=== PATIENT | female | born 1940 | race Caucasian/White ===

== ENCOUNTER 2017-07-17 09:13 | Day surgery (SDC) | payer MEDICARE ==
[2017-07-15 11:12] VITALS: BMI 21.1
[~2017-07-17 09:13] MED LIST: LACTATED RINGERS 1,000 ML IV SCH; LIDOCAINE 1% 20 ML VIAL (10MG/ML) FOR IV START INTRADERMA PRN
[2017-07-17 09:52] VITALS: TEMP 98.6
[2017-07-17] MEDS ORDERED: PROPOFOL 10 MG/ML 20 ML VIAL IV ONE (09:58)
--- NOTE | 2017-07-17 10:15 | P.PCN ---
Date of Procedure: 07/17/17 Procedure(s) Performed: BRIEF HISTORY: Patient is a 76-year-old pleasant white female, scheduled for an elective colonoscopy as a part of evaluation of chronic diarrhea for the last several months duration. She has bowel movements anywhere from 5-8 individual loose to watery in consistency but denies any blood or mucus in the stool. PROCEDURE PERFORMED: Colonoscopy with biopsy. PREOPERATIVE DIAGNOSIS: Chronic diarrhea. IV sedation per Anesthesia. PROCEDURE: After informed consent was obtained, the patient, was brought into the endoscopy unit. IV sedation was administered by Anesthesia under continuous monitoring. Digital rectal examination was normal. Initially the Olympus CF- 160 flexible video colonoscope was then inserted in the rectum, gradually advanced into the cecum without any difficulty. Careful examination was performed as the scope was gradually being withdrawn. Ileocecal valve and the appendiceal orifice were visualized and appeared normal. Prep was excellent. Mucosa of the cecum, ascending colon, transverse colon, descending colon, sigmoid colon, and rectum appeared normal. random biopsies were done from the ascending and descending colon to rule out microscopic/collagenous colitis. Retroflexion was performed in the rectum and no lesions were seen. The patient tolerated the procedure well. IMPRESSION: Normal-appearing colon from rectum to cecum with no evidence of colorectal neoplasia RECOMMENDATIONS: Findings of this examination were discussed with the patient as well as a family. She was advised to follow with the biopsy results. She' ll be seen in the office in 2 weeks.
[2017-07-17 10:19] LABS: HCT 40.4 % (34.0-46.0); HGB 13.2 gm/dL (11.4-16.0); MCHC 32.7 g/dL (31.0-37.0); MCV 94.6 fL (80.0-100.0); Mean Platelet Volume 6.8; Platelet Count 210 k/uL (150-450); RBC 4.27 m/uL (3.80-5.40); RDW 12.3 % (11.5-15.5); WBC 7.6 k/uL (3.8-10.6)
[2017-07-17 10:22] VITALS: BP 100/66; PULSE 78; RESP 14
[2017-07-17 14:26] LABS: Erythrocyte Sedimentation Rate 13 mm/hr (0-20)
[2017-07-17 17:06] LABS: Gliadin AB IgA, Unit 1.4 U/mL
== END 2017-07-17 11:06 | disposition home or self-care (01) ==
LOC: ORWHC2ENDO 09:13
PROVIDERS: ATTEND Internal Medicine Gastroenterology
DX: K52.9 Noninfective gastroenteritis and colitis, unspecified (principal); J44.9 Chronic obstructive pulmonary disease, unspecified; Z88.8 Allergy status to other drugs, medicaments and biological substances; Z79.52 Long term (current) use of systemic steroids; Z79.51 Long term (current) use of inhaled steroids; Z79.899 Other long term (current) drug therapy
CPT/HCPCS: 88305; 85652; 85027; 86140; 83516 ×4; 45380; J2704

== ENCOUNTER → 2018-08-07 | Outpatient (CLI) | payer MEDICARE ==
[2018-08-08 02:10] LABS: Albumin 4.2 g/dL (3.80-4.90); Albumin/Globulin Ratio 2.33 (1.60-3.17); Anion Gap 9.9 mmol/L (4.00-12.00); Calcium 9.6 mg/dL (8.7-10.3); Carbon Dioxide 28.1 mmol/L (21.6-31.8); Globulin 1.8 g/dL (1.6-3.3); Potassium 4.1 mmol/L (3.5-5.5); Total Bilirubin 0.3 mg/dL (0.2-1.2)
[2018-08-12 11:23] LABS: Creatinine Urine Random 114 mg/dL (20-275); N-Telopeptides/Creat Ratio, Ur 18
== END | disposition home or self-care (01) ==
LOC: LABWHC1 15:48
PROVIDERS: ATTEND Internal Medicine Endocrinology, Diabetes & Metabolism
DX: M81.0 Age-related osteoporosis without current pathological fracture (principal)
CPT/HCPCS: 36415; 80053; 82306; 82523; 84443

== ENCOUNTER → 2019-03-24 | Outpatient (CLI) | payer MEDICARE ==
[2019-03-24 22:54] LABS: Albumin 4.2 g/dL (3.80-4.90); Albumin/Globulin Ratio 2.33 (1.60-3.17); Anion Gap 6.1 mmol/L (4.00-12.00); Calcium 9.4 mg/dL (8.7-10.3); Carbon Dioxide 28.9 mmol/L (21.6-31.8); Globulin 1.8 g/dL (1.6-3.3); Potassium 4.1 mmol/L (3.5-5.5); Total Bilirubin 0.3 mg/dL (0.3-1.2)
== END | disposition home or self-care (01) ==
LOC: LABWHC1 14:49
PROVIDERS: ATTEND Internal Medicine Endocrinology, Diabetes & Metabolism
DX: M81.0 Age-related osteoporosis without current pathological fracture (principal)
CPT/HCPCS: 36415; 80053; 82306; 82523; 83970; 84443

== ENCOUNTER → 2020-03-22 | Outpatient (CLI) | payer MEDICARE ==
[2020-03-22 21:29] LABS: African American GFR (CKD) 82.4 (60.0-200.0); Albumin 4.2 g/dL (3.80-4.90); Albumin/Globulin Ratio 2.21 (1.60-3.17); Anion Gap 7.3 mmol/L (4.00-12.00); BUN/Creat Ratio 17.5 Ratio (12.00-20.00); Calcium 9.6 mg/dL (8.7-10.3); Carbon Dioxide 29.7 mmol/L (21.6-31.8); Globulin 1.9 g/dL (1.6-3.3); Non-African American GFR(CKD) 71.1 (60.0-200.0); Potassium 3.9 mmol/L (3.5-5.5); Total Bilirubin 0.4 mg/dL (0.3-1.2); Total Protein 6.1 g/dL (6.2-8.2)
== END | disposition home or self-care (01) ==
LOC: LABWHC1 11:15
PROVIDERS: ATTEND Internal Medicine Endocrinology, Diabetes & Metabolism
DX: M81.0 Age-related osteoporosis without current pathological fracture (principal)
CPT/HCPCS: 36415; 80053; 82306; 82523; 83970; 84443

== ENCOUNTER → 2020-08-23 | Outpatient (CLI) | payer MEDICARE ==
--- NOTE | 2020-08-23 14:57 | BD ---
EXAMINATION TYPE: Axial Bone Density DATE OF EXAM: 08/23/2020 COMPARISON: NONE CLINICAL HISTORY: Height: 5 FT 2 IN Weight: 112 FRAX RISK QUESTIONS: Alcohol (3 or more units per day): NO Family History (Parent hip fracture): YES Glucocorticoids (More than 3mos): YES (Ex: prednisone, prednisolone, methylprednisolone, dexamethasone, and hydrocortisone). History of Fracture in Adulthood: NO Secondary Osteoporosis: 1. Type 1 Diabetes: NO 2. Hyperthyroidism: NO 3. Menopause before 45: NO 4. Malnutrition: NO 5. Chronic liver disease: HEPATITIS A TEEN Rheumatoid Arthritis: NO Current Tobacco Use: NO RISK FACTORS HISTORY OF: Surgery to Spine/Hip(right/left)/Wrist (right/left): NO Family History of Osteoporosis: YES Active: YES Diet low in dairy products/other sources of calcium: NO Postmenopausal woman: AGE 59 Take estrogen and/or progesterone medications: TOOK HRT 3-4 YEARS NO LONGER TAKES Lost more than 2 inches in height since high school: YES Poor Health: EMPHYSEMA MEDICATIONS: Prednisone or other steroids: How Long: Thyroid Medications: Which medication: How Long: Osteoporosis Medications: Which medication: How Long: Additional Medications: INHALERS FOR EMPHYSEMA Additional History: EXAM MEASUREMENTS: Bone mineral densitometry was performed using the [employer] System. Bone mineral density as measured about the Lumbar spine is: ----- L1-L4(G/cm2): 0.994 T Score Values are as follows: ----- L2: -1.9 ----- L3: -0.5 ----- L4: -1.8 ----- L1-L4: -1.5 PREV DONE IN [place] Bone mineral density about the R hip (g/cm2): 0.754 Bone mineral density about the L hip (g/cm2): 0.742 T Score values are as follows: -----R Neck: -2.0 -----L Neck: -2.1 -----R Total: -2.5 -----L Total: -2.2 PREV DONE IN [place] IMPRESSION: Osteopenia (T Score between -2.5 and -1). There is slightly increased risk of fracture and the patient may be considered for treatment. Re-Screen 2-5 years. NOTE: T-SCORE=SD OF THE YOUNG ADULT MEAN.
== END | disposition home or self-care (01) ==
LOC: RADBDWWP 08:30
PROVIDERS: ATTEND Internal Medicine Endocrinology, Diabetes & Metabolism
DX: M85.89 Other specified disorders of bone density and structure, multiple sites (principal)
CPT/HCPCS: 77080

== ENCOUNTER → 2021-11-26 | Outpatient (CLI) | payer MEDICARE ==
[2021-11-26 16:03] LABS: ABG Base Excess 3.7 mmol/L; ABG HCO3 28 mmol/L (21-25); ABG Oxygen Saturation 93.8 % (94-97); ABG PCO2 45 mmHg (35-45); ABG PH 7.41 (7.35-7.45); ABG PO2 65 mmHg (83-108); ABG TCO2 30 mmol/L (19-24); Allen Test Performed? Yes
== END | disposition home or self-care (01) ==
LOC: LABWHC1 15:22
PROVIDERS: ATTEND Internal Medicine
DX: J44.9 Chronic obstructive pulmonary disease, unspecified (principal)
CPT/HCPCS: 36600; 82805

== ENCOUNTER → 2021-11-28 | Outpatient (CLI) | payer MEDICARE ==
--- NOTE | 2021-11-28 17:01 | CA ---
Transthoracic Echo Report Name: Olivia Chan Age: 81 Gender: F : 1940 Exam Date: 11/28/2021 13:58 Exam Location: [facility] Ht (in): 63 Wt (lb): 108 Ordering Physician: Mara Hayes MD Attending/Referring Phys: Contract Runner Janki Kim RDCS Procedure CPT: Indications: COPD J44.9, J96.11 RESP FAILURE WITH HYPOXIA Cardiac Hx: Hx of COPD Technical Quality: Fair Contrast 1: Total Dose (mL): Contrast 2: Total Dose (mL): MEASUREMENTS (Male / Female) Normal Values 2D ECHO LV Diastolic Diameter PLAX 3.0 cm 4.2 - 5.9 / 3.9 - 5.3 cm LV Systolic Diameter PLAX 1.6 cm IVS Diastolic Thickness 0.8 cm 0.6 - 1.0 / 0.6 - 0.9 cm LVPW Diastolic Thickness 1.0 cm 0.6 - 1.0 / 0.6 - 0.9 cm LV Relative Wall Thickness 0.6 RV Internal Dim ED PLAX 3.7 cm M-MODE Aortic Root Diameter MM 2.9 cm LA Systolic Diameter MM 2.7 cm LA Ao Ratio MM 1.0 MV E Point Septal Separation 1.0 cm AV Cusp Separation MM 1.4 cm DOPPLER AV Peak Velocity 132.8 cm/s AV Peak Gradient 7.1 mmHg MV Area PHT 3.1 cm??? MR Peak Velocity 116.3 cm/s MR Peak Gradient 5.4 mmHg Mitral E Point Velocity 73.8 cm/s Mitral A Point Velocity 69.5 cm/s Mitral E to A Ratio 1.1 MV Deceleration Time 241.4 ms TR Peak Velocity 209.6 cm/s TR Peak Gradient 17.6 mmHg Right Ventricular Systolic Press 21.9 mmHg FINDINGS Left Ventricle Normal left ventricular size, wall thickness, systolic function with no obvious regional wall motion abnormalities. Normal left ventricular diastolic filling pattern for age. The ejection fraction is visually estimated at %. Right Ventricle Moderate right ventricular dilatation. Right Atrium The right atrium is normal in size. Left Atrium The left atrium is normal in size. Mitral Valve Structurally normal mitral valve without significant stenosis or prolapse. There is mild mitral regurgitation. Aortic Valve Structurally normal aortic valve without significant sclerosis or stenosis. There is no aortic regurgitation. Tricuspid Valve Structurally normal tricuspid valve without significant stenosis. Pulmonary artery systolic pressure is normal. Mild tricuspid regurgitation. Pulmonic Valve Structurally normal pulmonic valve without significant stenosis. There is no pulmonic regurgitation. Pericardium Small pericardial effusion. Aorta Normal aortic root dimension. CONCLUSIONS Normal LV systolic function with mild mitral regurgitation and mild tricuspid regurgitation Previewed by: Dr. Brenden Black MD (Electronically Signed) Final Date: 28 November 2021 17:00
== END | disposition home or self-care (01) ==
LOC: RADECHMAIN 13:55
PROVIDERS: ATTEND Internal Medicine
DX: I08.1 Rheumatic disorders of both mitral and tricuspid valves (principal); J44.9 Chronic obstructive pulmonary disease, unspecified
CPT/HCPCS: 93306

== ENCOUNTER → 2021-12-19 | Outpatient (CLI) | payer MEDICARE ==
--- NOTE | 2021-12-19 22:47 | CT ---
EXAMINATION TYPE: CT chest wo con CT DLP: 432.3 mGycm, Automated exposure control for dose reduction was used. DATE OF EXAM: 12/19/2021 5:04 PM COMPARISON: Chest radiograph from 03/13/2017 CLINICAL INDICATION:Female, 81 years old with history of J96.11 CHRONIC RESPIRATORY FAILURE WITH HYPO JANINE, CHRONIC RESPIRATORY FAILURE WITH HYPOXIA TECHNIQUE: Multiple axial images were obtained through the chest with additional prone imaging Contrast used: none Oral contrast used: none. FINDINGS: LUNGS/ PLEURA: No focal consolidation, pneumothorax or pleural effusion. There is moderate to severe centrilobular emphysema changes. Scattered pulmonary nodules are identified. Examples on the right in clude: Right upper lobe 4 mm image 40 series 4, and 5 mm image 134, right middle lobe with spiculated borders measuring 4 mm image 156, right lower lobe 5 mm image 220. On the left pulmonary nodules inc lude upper lobe 3 mm on image 119. Additional scattered calcified nodules are seen bilaterally. No de finitive air trapping or honeycombing. AIRWAY: Few large airways are opacified most pronounced in the right lower lobe series 4 image 29 and left lower lobe series 4 image 209. Mild bronchial wall thickening. Scattered secretions are seen wi thin the trachea. Mild bronchiectasis is present. HEART: Size within normal limits. MEDIASTINUM: Partially calcified lymph nodes are seen in the pulmonary mary. VASCULATURE: No aortic aneurysm. Atherosclerosis of the aortic valve. Scattered mild coronary artery atherosclerosis. MUSCULOSKELETAL: No acute osseous abnormalities. Multilevel disc degeneration changes are seen throug hout the spine SOFT TISSUES/LYMPH NODES: Unremarkable. LOWER NECK: No significant findings. UPPER ABDOMEN: Scattered splenic calcified granulomas. IMPRESSION: 1. Moderate to severe COPD changes including emphysema and bronchial wall thickening with mild bronch iectasis. No evidence for honeycombing. 2. Scattered nodular like areas of the lungs measuring up to 5 mm. Follow-up imaging in 6-12 months i s recommended to ensure stability. 3. Sequela of granulomatous disease including scattered calcified pulmonary nodules, mediastinal/pulm onary hilum partially calcified lymph nodes and calcified granulomas in the spleen. 4. Few scattered opacified large airways could represent retained secretions versus aspiration.
== END | disposition home or self-care (01) ==
LOC: RADCTMAIN 15:46
PROVIDERS: ATTEND Internal Medicine
DX: J43.9 Emphysema, unspecified (principal); J96.11 Chronic respiratory failure with hypoxia; R91.1 Solitary pulmonary nodule
CPT/HCPCS: 71250

== ENCOUNTER → 2022-04-15 | Outpatient (CLI) | payer MEDICARE ==
[2022-04-15 23:27] LABS: African American GFR (CKD) 88.7 (60.0-200.0); Albumin 4.3 g/dL (3.8-4.9); Albumin/Globulin Ratio 1.59 (1.60-3.17); Anion Gap 10.9 mmol/L (10.00-18.00); BUN/Creat Ratio 16.8 Ratio (12.00-20.00); Blood Urea Nitrogen 12.5 mg/dL (9.0-27.0); Calcium 9.6 mg/dL (8.7-10.3); Carbon Dioxide 28.4 mmol/L (20.0-27.5); Globulin 2.7 g/dL (1.6-3.3); Non-African American GFR(CKD) 76.6 (60.0-200.0); Potassium 4.6 mmol/L (3.5-5.5); Total Bilirubin 0.3 mg/dL (0.30-1.20)
== END | disposition home or self-care (01) ==
LOC: LABWHC1 13:40
PROVIDERS: ATTEND Internal Medicine Endocrinology, Diabetes & Metabolism
DX: M81.0 Age-related osteoporosis without current pathological fracture (principal)
CPT/HCPCS: 36415; 80053; 82306; 82523; 83970; 84443

== ENCOUNTER → 2022-09-02 | Outpatient (CLI) | payer MEDICARE ==
--- NOTE | 2022-09-02 15:38 | BD ---
EXAMINATION TYPE: Axial Bone Density DATE OF EXAM: 09/02/2022 CLINICAL HISTORY: 81 years old Female. ICD-10 CODE: M81.0 OSTEOPOROSIS W/O FRACTURE Height: 61.75" Weight: 108.7 FRAX RISK QUESTIONS: Alcohol (3 or more units per day): No Family History (Parent hip fracture): Yes, father Glucocorticoids (More than 3mos): Uses inhaler every day, albuterol on occasion (Ex: prednisone, prednisolone, methylprednisolone, dexamethasone, and hydrocortisone). History of Fracture in Adulthood: No Secondary Osteoporosis: 1. Type 1 Diabetes: No 2. Hyperthyroidism: No 3. Menopause before 45: No 4. Malnutrition: No 5. Chronic liver disease: No, hepatitis in high school, unsure which one Rheumatoid Arthritis: No Current Tobacco Use: No RISK FACTORS HISTORY OF: Hip Fracture (Right/Left): No Spine Fracture: No History of Wrist Fracture: No Surgery to Spine/Hip(right/left)/Wrist (right/left): No Family History of Osteoporosis: Yes, sister, paternal grandmother, possibly paternal aunt Active: Yes Diet low in dairy products/other sources of calcium: No Postmenopausal woman: Yes Lost more than 2 inches in height since high school: Yes, was once 66" Frequent falls: No Poor Health: No Hyperparathyroidism: No Adrenal Insufficiency: No MEDICATIONS: Prednisone or other steroids: No Thyroid Medications: No Osteoporosis Medications: Additional Medications: Inhalers for emphysema (2 daily and one emergency albuterol inhaler), vitamin D and C, allergy meds, glucosamine Additional History: None EXAM MEASUREMENTS: Bone mineral densitometry was performed using the [employer] System. Bone mineral density as measured about the Lumbar spine is: ----- L1-L4(G/cm2): 0.937 T Score Values are as follows: ----- L1: -2.7 ----- L2: -2.2 ----- L3: -1.3 ----- L4: -2.1 ----- L1-L4: -2.0 Z Score Values are as follows: ----- L1: -0.3 ----- L2: 0.1 ----- L3: 1.0 ----- L4: 0.2 ----- L1-L4: 0.3 Bone mineral density has: decreased 5.7% since study of: 08/23/2020 Bone mineral density about the R hip (g/cm2): 0.681 Bone mineral density about the L hip (g/cm2): 0.698 T Score values are as follows: -----R Neck: -2.3 -----L Neck: -2.1 -----R Total: -2.6 -----L Total: -2.5 Z Score values are as follows: -----R Neck: 0.2 -----L Neck: 0.4 -----R Total: -0.2 -----L Total: -0.1 Bone mineral density has: decreased -3.5% since study of: 08/23/2020 FRAX%s: The graph provided illustrates a 15.2% chance for a major osteoporotic fx and a 5.2% chance f or the hips probability for fx in 10 years time. IMPRESSION: Osteoporosis (T Score less than -2.5). There is increased fracture risk and therapy is usually indicated based on age. Re-Screen 1-2 years. NOTE: T-SCORE=SD OF THE YOUNG ADULT MEAN.
== END | disposition home or self-care (01) ==
LOC: RADBDWWP 14:06
PROVIDERS: ATTEND Internal Medicine Endocrinology, Diabetes & Metabolism
DX: M81.0 Age-related osteoporosis without current pathological fracture (principal)
CPT/HCPCS: 77080

== ENCOUNTER → 2023-06-20 | Outpatient (CLI) | payer MEDICARE ==
--- NOTE | 2023-06-20 13:35 | CT ---
EXAMINATION TYPE: CT chest wo con DATE OF EXAM: 06/20/2023 COMPARISON: Chest CT August 01, 2022 and older study December 19, 2021 HISTORY: SOB CT DLP: 381.8 mGycm. Automated Exposure Control for Dose Reduction was Utilized. TECHNIQUE: CT scan of the thorax is performed without IV contrast. High-resolution protocol with 1 m m images and 10 mm intervals obtained in supine and prone technique. FINDINGS: LUNGS: Moderate underlying emphysematous change is redemonstrated. There is mild to moderate scattere d linear scarring greatest in the mid to lower lungs redemonstrated. There is new more focal consolid ation in the right lung base greatest posteriorly and laterally. No honeycombing. No pleural effusion or pneumothorax. Protocol is not appropriate for assessing and measuring subcentimeter nodules. MEDIASTINUM: Lack of IV contrast and technique are noted to limit evaluation for mediastinal and alen cially hilar adenopathy. There are no definitive new greater than 1 cm noncalcified mediastinal lymph nodes. No cardiomegaly or pericardial effusion is seen. There are calcified bilateral hilar lymph nodes noted. Coronary artery calcification is seen. OTHER: A few calcifications throughout the spleen redemonstrated. IMPRESSION: Evidence of old granulomatous disease. Moderate emphysematous change with mild scattered linear scarring and parenchymal fibrosis redemonstrated. New right lower lobe consolidation is seen. Correlate clinically.
== END | disposition home or self-care (01) ==
LOC: RADCTMAIN 12:49
PROVIDERS: ATTEND Internal Medicine
DX: J43.9 Emphysema, unspecified (principal); J98.4 Other disorders of lung; J84.10 Pulmonary fibrosis, unspecified; R91.8 Other nonspecific abnormal finding of lung field
CPT/HCPCS: 71250

== ENCOUNTER → 2023-06-30 | Outpatient (CLI) | payer MEDICARE ==
--- NOTE | 2023-07-01 09:58 | CA ---
Transthoracic Echo Report Name: Olivia Chan Age: 82 Gender: F : 1940 Exam Date: 06/30/2023 14:22 Exam Location: [facility] Ht (in): 62 Wt (lb): 110 Ordering Physician: Mara Hayes MD Attending/Referring Phys: Jig And Fixture Builder Rosalie Loco [facility] Procedure CPT: Indications: J96.11 RESP FAILURE Cardiac Hx: Technical Quality: Technically difficult study Contrast 1: Total Dose (mL): Contrast 2: Total Dose (mL): MEASUREMENTS (Male / Female) Normal Values 2D ECHO LV Diastolic Diameter PLAX 3.4 cm 4.2 - 5.9 / 3.9 - 5.3 cm LV Systolic Diameter PLAX 2.2 cm IVS Diastolic Thickness 0.8 cm 0.6 - 1.0 / 0.6 - 0.9 cm LVPW Diastolic Thickness 0.6 cm 0.6 - 1.0 / 0.6 - 0.9 cm LV Relative Wall Thickness 0.4 LVOT Diameter 2.0 cm M-MODE Aortic Root Diameter MM 2.6 cm LA Systolic Diameter MM 3.5 cm LA Ao Ratio MM 1.4 AV Cusp Separation MM 1.1 cm DOPPLER AV Peak Velocity 155.1 cm/s AV Peak Gradient 9.6 mmHg AV Mean Velocity 117.1 cm/s AV Mean Gradient 6.1 mmHg AV Velocity Time Integral 32.9 cm LVOT Peak Velocity 141.5 cm/s LVOT Peak Gradient 8.0 mmHg LVOT Velocity Time Integral 26.5 cm LVOT Stroke Volume 80.9 cm??? LVOT Stroke Volume Index 54.6 ml/m??? LVOT Cardiac Index 4766.9 cm???/min???m??? AV Area Cont Eq vti 2.5 cm??? AV Area Cont Eq pk 2.8 cm??? Mitral E Point Velocity 63.6 cm/s Mitral A Point Velocity 68.4 cm/s Mitral E to A Ratio 0.9 MV Deceleration Time 194.0 ms LV E' Lateral Velocity 10.2 cm/s Mitral E to LV E' Lateral Ratio 6.2 LV E' Septal Velocity 7.9 cm/s Mitral E to LV E' Septal Ratio 8.1 TR Peak Velocity 247.5 cm/s TR Peak Gradient 24.5 mmHg Right Atrial Pressure 3.0 mmHg Pulmonary Artery Systolic Pressu 27.5 mmHg Right Ventricular Systolic Press 27.5 mmHg FINDINGS Left Ventricle Left ventricular wall thickness normal. Small left ventricular cavity. Normal left ventricular systolic function with no obvious regional wall motion abnormalities. Left ventricular ejection fraction is estimated at 55-60%. Right Ventricle Mild right ventricular dilatation. Normal RV systolic function Right Atrium Normal right atrial size. Left Atrium Normal left atrial size. Mitral Valve Mitral valve thickened. Mild mitral regurgitation. Aortic Valve Aortic valve not well visualized. Aortic valve sclerosis. Trace aortic regurgitation. Tricuspid Valve Structurally normal tricuspid valve. Mild tricuspid regurgitation. Pulmonic Valve Pulmonic valve not well visualized. Pericardium No pericardial effusion. Echo free space anterior to the right ventricle likely represents a fat pad. Aorta Normal size aortic root. CONCLUSIONS Left ventricular ejection fraction is estimated at 55-60%. No obvious regional wall motion abnormalities. Small left ventricular cavity. Mild right ventricular dilatation. Normal RV systolic function. Mild MR and mild TR No pericardial effusion Previewed by: Dr Lenard Tompkins (Electronically Signed) Final Date: 01 July 2023 09:58
== END | disposition home or self-care (01) ==
LOC: RADECHMAIN 14:08
PROVIDERS: ATTEND Internal Medicine
DX: I34.0 Nonrheumatic mitral (valve) insufficiency (principal); I36.1 Nonrheumatic tricuspid (valve) insufficiency; I51.7 Cardiomegaly; J96.11 Chronic respiratory failure with hypoxia
CPT/HCPCS: 93306

== ENCOUNTER → 2023-09-04 | Outpatient (CLI) | payer MEDICARE ==
--- NOTE | 2023-09-07 15:26 | PE ---
EXAMINATION TYPE: PET CT fusion skull to thigh DATE OF EXAM: 09/04/2023 COMPARISON: 06/20/2023 Prior PET/CT: No prior PET/CT at this location HISTORY: Lung nodule TECHNIQUE: Following the intravenous administration of 12.76 mCi of F-18 FDG, whole body images are performed from the skull base to the midthigh. Images are reviewed on the computer in the coronal, a xial, and sagittal planes. Reconstructed rotating images are created on independent workstation and reviewed on the computer. A localization and attenuation correction CT is performed in conjunction with the PET scan. DLP: 198.11 mGycm SCAN: Initial Blood glucose: 94 mg/dL Average Mediastinum SUV: 2.01 Average Liver SUV: 2.36 FINDINGS: NECK: No abnormal uptake THORAX: No abnormal uptake. There is a calcific density within the lateral left lung. SUV is 0.4. There is some posterior pleural thickening mid left lung. This has an SUV value 0.654. Density is evident at the peripheral left lat eral lung base, SUV 1.5, image 130. Previous uptake within the posterior lateral right lung base and right lower lobe not evident on the current examination ABDOMEN: No abnormal uptake PELVIS: No abnormal uptake OSSEOUS STRUCTURES: No abnormal uptake LOCALIZATION CT: Calcifications within the lateral left lung. Findings within the lung mast are lala nging. Monitoring with CT chest is recommended. COMPARISON: Previous suspicious densities have largely resolved. New lung densities have appeared ove r the short interval. IMPRESSION: 1. No suspicious uptake to suggest primary or metastatic disease. 2. Changing infiltrates and pleural-based densities discussed above. Suspicious uptake is identified. End likely related to inflammatory changes such as pneumonia or atelectasis. Monitoring can be perfo rmed with CT chest.
== END | disposition home or self-care (01) ==
LOC: RADPETMAIN 12:14
PROVIDERS: ATTEND Internal Medicine
DX: R91.8 Other nonspecific abnormal finding of lung field (principal)
CPT/HCPCS: 78815; A9552

== ENCOUNTER 2024-12-09 21:17 | Observation (INO) | payer MEDICARE ==
[2024-12-09] MEDS: LACTATED RINGERS 1,000 ML IV ONE (22:18)
[2024-12-09] MEDS: methylPREDNISolone SOD SUCCI 125 MG/2 ML VIAL IV STA (22:18)
[2024-12-09] MEDS: MAGNESIUM SULFATE-D5W PMX 1 GM in DEXTROSE/WATER 1 100ML.BAG IVPB STA (22:36)
[2024-12-09 23:00] LABS: Basophils # (A) 0.01 10*3/uL (0.00-0.10); Basophils % (A) 0.1 %; Eosinophils # (A) 0.00 10*3/uL (0.04-0.35); Eosinophils % (A) 0.0 %; HCT 37.1 % (37.2-46.3); HGB 11.9 g/dL (12.0-15.0); Lymphocytes # (A) 0.74 10*3/uL (0.90-5.00); Lymphocytes % (A) 9.1 %; MCH 28.7 pg (27.0-32.0); MCHC 32.1 g/dL (32.0-37.0); MCV 89.4 fL (80.0-97.0); Monocytes # (A) 0.24 10*3/uL (0.20-1.00); Monocytes % (A) 3.0 %; Neutrophils # (A) 7.12 10*3/uL (1.80-7.70); Neutrophils % (A) 87.6 %; Platelet Count 240 10*3/uL (140-440); RBC 4.15 10*6/uL (4.10-5.20); RDW 12.4 % (11.5-14.5); WBC 8.13 10*3/uL (4.50-10.00)
--- NOTE | 2024-12-09 23:02 | XR ---
EXAM: XR Chest, 2 Views CLINICAL HISTORY: ITS.REASON XR Reason: difficulty breathing TECHNIQUE: Frontal and lateral views of the chest. COMPARISON: Prior chest x-ray from December 06, 2024. FINDINGS: Lungs: Moderate to heavy peribronchial thickening of the central bronchi. Hyperinflation lungs with flattened diaphragms. No consolidation. Pleural space: Unremarkable. No pneumothorax. Heart: Unremarkable. No cardiomegaly. Mediastinum: Unremarkable. Normal mediastinal contour. Bones/joints: Unremarkable. No acute fracture. IMPRESSION: Bronchitis, which may be of infectious or inflammatory allergies. No consolidation or pleural effusion.
--- NOTE | 2024-12-09 23:11 | ED ---
General Adult HPI - General Chief complaint: Shortness of Breath Stated complaint: SOB Time Seen by Provider: 12/09/24 21:20 Source: patient, EMS, RN notes reviewed, old records reviewed Mode of arrival: EMS Limitations: no limitations - History of Present Illness Initial comments: 84-year-old female presents emergency department complaining of shortness of breath. Does have a history of COPD. Is on chronic 5 L nasal cannula oxygen at home. Has been dealing with URI symptoms since December 03. Is currently December 09. States that since December 06 she has been on Bactrim as well as prednisone. Follows up with Dr. Hayes. States that she has no chest pain but has been having increased shortness of breath. Feels better after breathing treatment from EMS on the way here. Denies abdominal pain, nausea, vomiting. No known sick contacts. States she has been compliant with inhalers, steroids, antibiotics. Patient presents for further evaluation at this time. - Related Data Home Medications Medication Instructions Recorded Confirmed Fluticasone Propion/Salmeterol 2 puff INHALATION RT-BID 09/29/22 09/29/22 [Advair Hfa 115-21 Mcg Inhaler] Tiotropium [place] [Spiriva 18 mcg INHALATION RT-DAILY 09/29/22 09/29/22 Handihaler] Previous Rx's Medication Instructions Recorded Ipratropium-Albuterol Nebulize 3 ml INHALATION Q6H PRN 30 Days 10/04/22 [Duoneb 0.5 mg-3 mg/3 ml Soln] #90 ml Loratadine [Claritin] 10 mg PO DAILY #30 tab 10/04/22 predniSONE See Taper PO DIRECTED 12 Days 10/04/22 #30 tab Allergies Allergy/AdvReac Type Severity Reaction Status Date / Time baclofen Allergy dizzy/light Verified 09/29/22 13:02 headed varenicline [From Chantix] Allergy Nausea & Verified 09/29/22 13:02 Vomiting Review of Systems ROS Statement: Those systems with pertinent positive or pertinent negative responses have been documented in the HPI. Review of Systems: CONST: Denies fever EYES: Denies blurry vision ENT: Denies nasal congestion C/V: Denies Chest pain RESP: Endorses shortness of breath GI: Denies abdominal pain : Denies dysuria SKIN: Denies rash. MSK: Denies joint pain. NEURO: Denies headache ROS Other: All systems not noted in ROS Statement are negative. Past Medical History Past Medical History: COPD, GERD/Reflux Additional Past Medical History / Comment(s): 4-7 formed bowel movements daily, O2 at 2l at HS History of Any Multi-Drug Resistant Organisms: None Reported Past Surgical History: Appendectomy, Orthopedic Surgery, Tubal Ligation Additional Past Surgical History / Comment(s): arthroscopic knee, sheldon cataracts Past Anesthesia/Blood Transfusion Reactions: Previous Problems w/ Anesthesia Additional Past Anesthesia/Blood Transfusion Reaction / Comment(s): "hard time waking up" Past Psychological History: No Psychological Hx Reported Smoking Status: Former smoker Past Alcohol Use History: None Reported Past Drug Use History: None Reported - Past Family History Father Family Medical History: Deep Vein Thrombosis (DVT) General Exam - General Exam Comments Initial Comments: General: Appears in mild respiratory distress. HEAD: Normal with no signs of head trauma. EYES: PERRLA, EOMI, conjunctiva normal, no discharge. ENT: Hearing grossly intact, normal oropharynx. RESPIRATORY: Bilateral end expiratory wheezing. Tight breath sounds bilater ally. Pursed lips on exhalation. No significant hypoxia on her baseline 4 to 5 L nasal cannula oxygen. C/V: Regular rate and rhythm. S1 and S2 auscultated, no edema, peripheral pulses 2+ and intact throughout ABD: Abd is soft, nontender, nondistended EXT: No obvious deformity SKIN: No rashes or lesions observed on exposed skin. NEURO: Alert and orient x 4. Limitations: no limitations Course Vital Signs 12/09/24 12/09/24 12/09/24 21:19 21:27 22:39 Temperature 98.3 F Pulse Rate 83 Respiratory 21 19 Rate Blood Pressure 139/70 O2 Sat by Pulse Oximetry 12/09/24 12/09/24 12/10/24 23:30 23:36 00:04 Temperature 98.4 F Pulse Rate 92 88 96 Respiratory 19 18 24 Rate Blood Pressure 143/85 137/66 O2 Sat by Pulse 97 96 Oximetry 12/10/24 12/10/24 00:54 01:00 Temperature Pulse Rate 99 103 H Respiratory 24 22 Rate Blood Pressure O2 Sat by Pulse Oximetry Medical Decision Making - Medical Decision Making Was pt. sent in by a medical professional or institution (, PA, SUPERVISOR TYPE DISK QUALITY CONTROL, urgent care, hospital, or [facility]...) When possible be specific @ -No Did you speak to anyone other than the patient for history (EMS, parent, family, police, friend...)? What history was obtained from this source @ -No Did you review nursing and triage notes (agree or disagree)? Why? @ -I reviewed and agree with nursing and triage notes Were old charts reviewed (outside hosp., previous admission, EMS record, old EKG, old radiological studies, urgent care reports/EKG's, [facility] records)? Report findings @ -Today's EKG compared with EKG from August 2022 with no significant acute change. Differential Diagnosis (chest pain, altered mental status, abdominal pain women, abdominal pain men, vaginal bleeding, weakness, fever, dyspnea, syncope, headache, dizziness, GI bleed, back pain, seizure, CVA, palpatations, mental health, musculoskeletal)? @ -COPD exacerbation, pneumonia, COVID, bronchitis, tracheobronchitis. This list is not all-inclusive. EKG interpreted by me (3pts min.). @ -As above X-rays interpreted by me (1pt min.). @ -Chest x-ray shows findings consistent with bronchitis CT interpreted by me (1pt min.). @ -None done U/S interpreted by me (1pt. min.). @ -None done What testing was considered but not performed or refused? (CT, X-rays, U/S, labs)? Why? @ -None What meds were considered but not given or refused? Why? @ -None Did you discuss the management of the patient with other professionals (professionals i.e. , PA, SUPERVISOR TYPE DISK QUALITY CONTROL, lab, RT, psych nurse, social services specialist, nature photographer, teacher, seal delivery vehicle officer, corrections caseworker)? Give summary @ -I spoke with the admitting provider, Dr. Saunders who accepted the admission. Was smoking cessation discussed for >3mins.? @ -No Was critical care preformed (if so, how long)? @ -No Were there social determinants of health that impacted care today? How? (Homelessness, low income, unemployed, alcoholism, drug addiction, transportation, low edu. Level, literacy, decrease access to med. care, care home, r ehab)? @ -No Was there de-escalation of care discussed even if they declined (Discuss DNR or withdrawal of care, Hospice)? DNR status @ -No What co-morbidities impacted this encounter? (DM, HTN, Smoking, COPD, CAD, Cancer, CVA, ARF, Chemo, Hep., AIDS, mental health diagnosis, sleep apnea, morbid obesity)? @ -Chronic hypoxic respiratory failure secondary to COPD Was patient admitted / discharged? Hospital course, mention meds given and route, prescriptions, significant lab abnormalities, going to OR and other pertinent info. @ -Patient presents for approximately 1 week of worsening shortness of breath. Has been on steroids as well as an antibiotic at home. States her shortness of breath got worse today. Feels improved after breathing treatment from EMS on the way here. Has chronic hypoxic respiratory failure on 4 to 5 L nasal cannula oxygen which she is currently on. Vitals are within acceptable limits. Will obtain chest x-ray, EKG, basic labs. She will be symptomatically treated with IV fluids, IV steroids, breathing treatment, IV magnesium. Patient was in agreement this plan. Vitals are within acceptable limits on her baseline 4 to 5 L nasal cannula oxygen. EKG shows no signs of acute ischemia. Chest x-ray shows bronchitis changes.Laboratory studies returned remarkable for mild hyponatremia of 132. Remainder the labs unremarkable. Following breathing treatment, patient is still having some pursed lips and decent wheezing bilaterally. She has been on steroids as well as Bactrim at home without improvement at home. I discussed this with the patient and she will be admitted to observation for her COPD exacerbation. Patient will be given a dose of Rocephin here in the department and continued on her Bactrim. I will defer further antibiotic therapy for pulmonology. Patient will be admitted to observation. Will continue with IV steroids as well as breathing treatments. She was in agreement this plan. Additional IV fluids and a maintenance rate or dered. I spoke with the admitting provider, Dr. Saunders who accepted the admission. Pulmonology consult placed. Undiagnosed new problem with uncertain prognosis? @ -No Drug Therapy requiring intensive monitoring for toxicity (Heparin, Nitro, Insulin, Cardizem)? @ -No Were any procedures done? @ -No Diagnosis/symptom? @ -COPD exacerbation, tracheobronchitis in the setting of chronic hypoxic respiratory failure Acute, or Chronic, or Acute on Chronic? @ -Acute Uncomplicated (without systemic symptoms) or Complicated (systemic symptoms)? @ -Complicated Side effects of treatment? @ -None Exacerbation, Progression, or Severe Exacerbation] @ -No Poses a threat to life or bodily function? @ -Yes - Lab Data Result diagrams: 12/09/24 22:16 12/09/24 22:16 Lab Results 12/09/24 12/09/24 12/09/24 Range/Units 22:10 22:16 22:16 WBC 8.13 (4.50-10.00) 10*3/uL RBC 4.15 (4.10-5.20) 10*6/uL Hgb 11.9 L (12.0-15.0) g/dL Hct 37.1 L (37.2-46.3) % MCV 89.4 (80.0-97.0) fL MCH 28.7 (27.0-32.0) pg MCHC 32.1 (32.0-37.0) g/dL Plt Count 240 (140-440) 10*3/uL MPV 9.7 (9.5-12.2) fL Immature Gran % (Auto) 0.2 % Neutrophils % 87.6 % Lymphocytes % 9.1 % Monocytes % 3.0 % Eosinophils % 0.0 % Basophils % 0.1 % Immature Gran # 0.02 (0.00-0.04) 10*3/uL Neutrophils # 7.12 (1.80-7.70) 10*3/uL Lymphocytes # 0.74 L (0.90-5.00) 10*3/uL Monocytes # 0.24 (0.20-1.00) 10*3/uL Eosinophils # 0.00 L (0.04-0.35) 10*3/uL Basophils # 0.01 (0.00-0.10) 10*3/uL Sodium 132 L (137-145) mmol/L Potassium 5.0 (3.5-5.1) mmol/L Chloride 93 L (98-107) mmol/L Carbon Dioxide 27 (22-30) mmol/L Anion Gap 12 mmol/L BUN 22 H (7-17) mg/dL Creatinine 0.85 (0.52-1.04) mg/dL Est GFR (CKD-EPI)AfAm 74 (>60 ml/min/1.73 sqM) Est GFR (CKD-EPI)NonAf 64 (>60 ml/min/1.73 sqM) Glucose 127 H (74-99) mg/dL Calcium 9.6 (8.4-10.2) mg/dL Magnesium 2.1 (1.6-2.3) mg/dL Total Bilirubin 0.5 (0.2-1.3) mg/dL AST 38 H (14-36) U/L ALT 22 (4-34) U/L Alkaline Phosphatase 69 (38-126) U/L Total Protein 7.1 (6.3-8.2) g/dL Albumin 4.6 (3.5-5.0) g/dL Influenza Type A (PCR) Not Detected (Not Detectd) Influenza Type B (PCR) Not Detected (Not Detectd) RSV (PCR) Not Detected (Not Detectd) SARS-CoV-2 (PCR) Not Detected (Not Detectd) - EKG Data -: EKG Interpreted by Me EKG Comments: 12-lead Electrocardiogram Interpretation Note EKG was reviewed and interpreted by myself. 12-lead ECG performed at 2206 is interpreted by me as revealing normal sinus rhythm at a rate of 85 beats per minute. [place] is normal. GA interval is 123 ms, QRS durations 82 ms, QTc is 375 ms.. There were no ST or T wave abnormalities to suggest myocardial ischemia or injury. R wave progression across the precordium was satisfactory. By my interpretation this EKG is non-diagnostic for acute ischemia. Disposition Clinical Impression: COPD exacerbation, Tracheobronchitis, Chronic hypoxic respiratory failure Disposition: ADMITTED IP TO THIS HOSP Condition: Stable Time of Disposition: 00:18
[2024-12-09 23:14] LABS: ALT 22 U/L (4-34); AST 38 U/L (14-36); African American GFR (CKD) 74 (>60 ml/min/1.73 sqM); Albumin 4.6 g/dL (3.5-5.0); Alkaline Phosphatase 69 U/L (38-126); Anion Gap 12 mmol/L; Blood Urea Nitrogen 22 mg/dL (7-17); Calcium 9.6 mg/dL (8.4-10.2); Carbon Dioxide 27 mmol/L (22-30); Chloride 93 mmol/L (98-107); Glucose 127 mg/dL (74-99); Magnesium 2.1 mg/dL (1.6-2.3); Non-African American GFR(CKD) 64 (>60 ml/min/1.73 sqM); Potassium 5.0 mmol/L (3.5-5.1); Sodium 132 mmol/L (137-145); Total Protein 7.1 g/dL (6.3-8.2)
[2024-12-09] MEDS: IPRATROPIUM-ALBUTEROL 3 ML NEB INHALATION STA (23:36)
[2024-12-09 23:44] LABS: RSV Not Detected (Not Detectd)
[2024-12-10] MEDS ORDERED: ACETAMINOPHEN TAB 325 MG TAB PO PRN (00:18)
[2024-12-10] MEDS ORDERED: ONDANSETRON 4 MG/2 ML VIAL IVP PRN (00:18)
[2024-12-10] MEDS ORDERED: NALOXONE 0.4 MG/ML 1 ML VIAL IV PRN (00:18)
[2024-12-10] MEDS: IPRATROPIUM-ALBUTEROL 3 ML NEB INHALATION STA (00:49)
[2024-12-10] MEDS: IPRATROPIUM-ALBUTEROL 3 ML NEB INHALATION PRN (00:54)
[2024-12-10] MEDS: LACTATED RINGERS 1,000 ML IV SCH (03:23)
[2024-12-10] MEDS: IPRATROPIUM-ALBUTEROL 3 ML NEB INHALATION SCH (03:30)
[2024-12-10] MEDS: HEPARIN SODIUM,PORCINE 5,000 UNIT/ML 1 ML VIAL SQ SCH (08:15)
[2024-12-10] MEDS: methylPREDNISolone SOD SUCCI 40 MG/ML 1 ML VIAL IV SCH (08:15)
[2024-12-10] MEDS: methylPREDNISolone SOD SUCCI 125 MG/2 ML VIAL IV SCH (10:27)
--- NOTE | 2024-12-10 13:13 | P.CNPUL ---
History of Present Illness Consult date: 12/10/24 Requesting physician: Chandana Saunders Reason for consult: dyspnea, COPD Chief complaint: Shortness of breath, cough, congestion History of present illness: This is a very pleasant 84-year-old female patient with a known history of severe, oxygen dependent chronic obstructive pulmonary disease with an FEV1 value of 21% and follows in our office with Dr. Hayes. She had been sick last week and was treated with Bactrim and prednisone without much improvement. She presented here to the emergency room yesterday with complaints of increasing shortness of breath, cough and congestion. Chest x-ray reveals bronchitis. No consolidation or pleural effusion. White count 8.1. Hemoglobin 11.9. P latelets 240. Sodium 132. Potassium 5.0. Bicarb 27. BUN 22. Creatinine 0.85. Glucose 127. Viral screen negative for influenza A/B, RSV, COVID. She is seen today in consultation in the emergency department. She is currently sitting up on a stretcher. Awake and alert in no acute distress. She is maintaining O2 saturations in the 90s on 4 L/min per nasal cannula. Review of Systems REVIEW OF SYSTEMS: CONSTITUTIONAL: Denies any recent significant weight loss or weight gain. EYES: Denies change in vision. EARS, NOSE, MOUTH, THROAT: Denies headaches, denies sore throat. CARDIOVASCULAR: Denies chest pain, palpitations or syncopal episodes. RESPIRATORY: Positive for shortness of breath, cough, congestion no hemoptysis. GASTROINTESTINAL: Denies change in appetite, denies abdominal pain GENITOURINARY: Denies hematuria, denies infections. MUSKULOSKELETAL: Denies pain, denies swelling. INTEGUMENTARY: Denies rash, denies eczema. NEUROLOGICAL: Denies recent memory loss, no recent seizure activity. PSYCHIATRIC: Denies anxiety, denies depression. HEMATOLOGIC/LYMPHATIC: Denies anemia, denies enlarged lymph nodes. Past Medical History Past Medical History: COPD, GERD/Reflux Additional Past Medical History / Comment(s): O2 at 5L History of Any Multi-Drug Resistant Organisms: None Reported Past Surgical History: Appendectomy, Orthopedic Surgery, Tubal Ligation Additional Past Surgical History / Comment(s): arthroscopic knee, sheldon cataracts Past Anesthesia/Blood Transfusion Reactions: Previous Problems w/ Anesthesia Additional Past Anesthesia/Blood Transfusion Reaction / Comment(s): "hard time waking up" Past Psychological History: No Psychological Hx Reported Smoking Status: Former smoker Past Alcohol Use History: None Reported Additional Past Alcohol Use History / Comment(s): quit smoking 2015, smoked 1/2- 1ppd from age 20 (1961) Past Drug Use History: None Reported - Past Family History Father Family Medical History: Deep Vein Thrombosis (DVT) Medications and Allergies Home Medications Medication Instructions Recorded Confirmed Type Tiotropium [place] [Spiriva 2 puff INHALATION RT-DAILY 09/29/22 12/10/24 History Handihaler] Albuterol Inhaler [Ventolin Hfa 2 puff INHALATION RT-Q4H PRN 12/10/24 12/10/24 History Inhaler] Azithromycin [Zithromax] 250 mg PO Q48H 12/10/24 12/10/24 History Fluticasone Propion/Salmeterol 1 puff INHALATION RT-BID 12/10/24 12/10/24 History [Advair 250-50 Diskus] Ipratropium-Albuterol Nebulize 3 ml INHALATION DIRECTED PRN 12/10/24 12/10/24 History [Duoneb 0.5 mg-3 mg/3 ml Soln] Sulfamethox-Tmp 800-160Mg [Bactrim 1 tab PO Q12HR 12/10/24 12/10/24 History DS 800-160 mg] predniSONE See Taper PO DIRECTED 12/10/24 12/10/24 History Allergies Allergy/AdvReac Type Severity Reaction Status Date / Time baclofen Allergy dizzy/light Verified 09/29/22 13:02 headed varenicline [From Chantix] Allergy Nausea & Verified 09/29/22 13:02 Vomiting Physical Exam Vitals: Vital Signs Temp Pulse Pulse Resp BP BP Pulse Ox 12/10/24 11:22 84 12/10/24 11:12 80 98 12/10/24 08:00 97.9 F 92 17 133/61 95 12/10/24 06:46 85 18 12/10/24 06:40 87 20 12/10/24 03:41 90 20 12/10/24 03:30 91 20 12/10/24 02:56 97.8 F 97 18 146/66 96 12/10/24 01:38 93 22 127/60 97 12/10/24 01:00 103 H 22 12/10/24 00:54 99 24 12/10/24 00:04 98.4 F 96 24 137/66 96 12/09/24 23:36 88 18 12/09/24 23:30 92 19 143/85 97 12/09/24 22:39 83 19 139/70 12/09/24 21:27 21 12/09/24 21:19 98.3 F Intake and Output 12/09/24 12/10/24 12/10/24 22:59 06:59 14:59 Intake Total 200 Balance 200 Intake: Intake, IV Titration 200 Amount Lactated Ringers 1,000 ml 200 @ 100 mls/hr IV .Q10H [facility] Rx#:[id number] Other: Voiding Method Bedside Commode Weight 49.895 kg 49.895 kg GENERAL EXAM: Alert, oriented, pleasant 84-year-old female, on 4 L nasal cannula, fairly comfortable in no apparent distress. HEAD: Normocephalic. EYES: Normal reaction of pupils, equal size. NOSE: Clear with pink turbinates. THROAT: No erythema or exudates. NECK: No masses, no JVD. CHEST: No chest wall deformity. LUNGS: Equal air entry with bilateral end expiratory wheeze, diminished. CVS: S1 and S2 normal with no audible murmur, regular rhythm. ABDOMEN: No hepatosplenomegaly, normal bowel sounds, no guarding or rigidity. SPINE: No scoliosis or deformity SKIN: No rashes CENTRAL NERVOUS SYSTEM: No focal deficits, tone is normal in all 4 extremities. EXTREMITIES: There is no peripheral edema. No clubbing, no cyanosis. Peripheral pulses are intact. Results - Laboratory Findings CBC and BMP: 12/09/24 22:16 12/09/24 22:16 Abnormal lab findings: Abnormal Labs 12/09/24 12/09/24 22:16 22:16 Hgb 11.9 L Hct 37.1 L Lymphocytes # 0.74 L Eosinophils # 0.00 L Sodium 132 L Chloride 93 L BUN 22 H Glucose 127 H AST 38 H - Diagnostic Findings Chest x-ray: image reviewed Assessment and Plan Assessment: Acute on chronic hypoxic respiratory failure secondary to an acute exacerbation of chronic obstructive pulmonary disease. Failed outpatient treatment Severe oxygen dependent chronic obstructive pulmonary disease with an FEV1 value 21% of predicted. Normally on oxygen at 4 to 5 L at home Former smoker Plan: The patient was seen and evaluated Chest x-ray, labs and medications reviewed Initiated on DuoNeb inhalations Initiated on Symbicort Initiated on Solu-Medrol Heparin for DVT prophylaxis Check a procalcitonin Titrate the FiO2 as tolerated Increase her activity as tolerated We will continue to follow and make further recommendations based on her clinical status I have personally seen and examined the patient, performed the documentation and the assessment and plan as written. Number of minutes spent on the visit: 20 Dictation was produced using legalPAD dictation software. Please excuse any grammatical, word or spelling errors.
--- NOTE | 2024-12-10 18:30 | P.HPIM ---
History of Present Illness H&P Date: 12/10/24 Chief Complaint: Short of breath Pleasant 84-year-old female who follows with Dr. Judy Tejada. Has known longstanding COPD. Follows with director physical therapy Dr. Hayes. On 5 L oxygen at home. Presents with 1 week of progressive increasing short of breath. Wheezing. No cough. No fever or chills. Decreased appetite. Tired. Admitted with COPD exacerbation. Review of systems: GEN.: Tired decreased appetite EYES: None HEENT: None NECK: None RESPIRATORY: As above CARDIOVASCULAR: None GASTROINTESTINAL: None GENITOURINARY: None MUSCULOSKELETAL: None LYMPHATICS: None HEMATOLOGICAL: None PSYCHIATRY: None NEUROLOGICAL: None Social history: Lives alone. Smoked from ages 18 till 2016. Half to a pack a day. No alcohol. Physical examination: VITAL SIGNS: 97.9, 92, 17, 133 x 61, 95% 4 L GENERAL: BMI 20.1, sitting up a bit short of breath. EYES: Pupils equal. Conjunctiva rio l. HEENT: External appearance of nose and ears normal, oral cavity grossly normal. NECK: JVD not raised; masses not palpable. HEART: First and second heart sounds are normal; no edema. LUNGS: Respiratory rate increased, diminished breath sound prolonged expiration. ABDOMEN: Soft, nontender, liver spleen not palpable, no masses palpable. PSYCH: Alert and oriented x3; mood and affect rio l. MUSCULOSKELETAL:No Clubbing/cyanosis;muscles-grossly intact NEUROLOGICAL: Cranial nerves grossly intact; no facial asymmetry, power and sensation grossly intact. LYMPHATICS: No lymph nodes palpable in the axilla and neck INVESTIGATIONS, reviewed in the clinical context: December 09, 2024: White count 8.1 hemoglobin 11.9 platelets 240 sodium 132 potassium 5 BUN 22 creatinine 0.85 Influenza type A, type B, RSV, SARS-CoV-2: Not detected EKG tracing personally reviewed by me-normal sinus rhythm. P pulmonale. Chest x-ray film personally reviewed by me-P pulmonale Assessment plan: - Acute severe COPD exacerbation in a prior smoker DuoNeb every 4. IV Solu-Medrol. Symbicort. - Hyponatremia Encourage oral intake - Normocytic anemia Check iron, B12 folate levels - Chronic hypoxic respiratory failure from underlying COPD Cares discussed with patient. Questions answered. Past Medical History Past Medical History: COPD, GERD/Reflux Additional Past Medical History / Comment(s): O2 at 5L History of Any Multi-Drug Resistant Organisms: None Reported Past Surgical History: Appendectomy, Orthopedic Surgery, Tubal Ligation Additional Past Surgical History / Comment(s): arthroscopic knee, sheldon cataracts Past Anesthesia/Blood Transfusion Reactions: Previous Problems w/ Anesthesia Additional Past Anesthesia/Blood Transfusion Reaction / Comment(s): "hard time waking up" Past Psychological History: No Psychological Hx Reported Smoking Status: Former smoker Past Alcohol Use History: None Reported Additional Past Alcohol Use History / Comment(s): quit smoking 2015, smoked 1/2- 1ppd from age 20 (1960) Past Drug Use History: None Reported - Past Family History Father Family Medical History: Deep Vein Thrombosis (DVT) Medications and Allergies Home Medications Medication Instructions Recorded Confirmed Type Tiotropium [place] [Spiriva 2 puff INHALATION RT-DAILY 09/29/22 12/10/24 History Handihaler] Albuterol Inhaler [Ventolin Hfa 2 puff INHALATION RT-Q4H PRN 12/10/24 12/10/24 History Inhaler] Azithromycin [Zithromax] 250 mg PO Q48H 12/10/24 12/10/24 History Fluticasone Propion/Salmeterol 1 puff INHALATION RT-BID 12/10/24 12/10/24 History [Advair 250-50 Diskus] Ipratropium-Albuterol Nebulize 3 ml INHALATION DIRECTED PRN 12/10/24 12/10/24 History [Duoneb 0.5 mg-3 mg/3 ml Soln] Sulfamethox-Tmp 800-160Mg [Bactrim 1 tab PO Q12HR 12/10/24 12/10/24 History DS 800-160 mg] predniSONE See Taper PO DIRECTED 12/10/24 12/10/24 History Allergies Allergy/AdvReac Type Severity Reaction Status Date / Time baclofen Allergy dizzy/light Verified 09/29/22 13:02 headed varenicline [From Chantix] Allergy Nausea & Verified 09/29/22 13:02 Vomiting Physical Exam Vitals: Vital Signs Temp Pulse Pulse Resp BP BP Pulse Ox 12/10/24 17:48 97.6 F 84 16 125/64 98 12/10/24 15:35 88 12/10/24 15:22 84 12/10/24 13:45 98.3 F 91 16 123/63 98 12/10/24 11:22 84 12/10/24 11:12 80 98 12/10/24 08:00 97.9 F 92 17 133/61 95 12/10/24 06:46 85 18 12/10/24 06:40 87 20 12/10/24 03:41 90 20 12/10/24 03:30 91 20 12/10/24 02:56 97.8 F 97 18 146/66 96 12/10/24 01:38 93 22 127/60 97 12/10/24 01:00 103 H 22 12/10/24 00:54 99 24 12/10/24 00:04 98.4 F 96 24 137/66 96 12/09/24 23:36 88 18 12/09/24 23:30 92 19 143/85 97 12/09/24 22:39 83 19 139/70 12/09/24 21:27 21 12/09/24 21:19 98.3 F Intake and Output 12/10/24 12/10/24 12/10/24 06:59 14:59 22:59 Intake Total 334 104 6270 Balance 064 740 4850 Intake: Intake, IV Titration 200 Amount Lactated Ringers 1,000 ml 200 @ 40 mls/hr IV .Q24H [facility] Rx#:[id number] Oral 240 1500 Other: Voiding Method Bedside Commode # Voids 5 # Bowel Movements 2 Weight 49.895 kg Results CBC & Chem 7: 12/09/24 22:16 12/09/24 22:16 Labs: Abnormal Lab Results - Last 24 Hours (Table) 12/09/24 12/09/24 Range/Units 22:16 22:16 Hgb 11.9 L (12.0-15.0) g/dL Hct 37.1 L (37.2-46.3) % Lymphocytes # 0.74 L (0.90-5.00) 10*3/uL Eosinophils # 0.00 L (0.04-0.35) 10*3/uL Sodium 132 L (137-145) mmol/L Chloride 93 L (98-107) mmol/L BUN 22 H (7-17) mg/dL Glucose 127 H (74-99) mg/dL AST 38 H (14-36) U/L Thrombosis Risk Factor Assmnt - Choose All That Apply Any of the Below Risk Factors Present?: Yes Each Factor Represents 1 point: Abnormal pulmonary function (COPD) Other Risk Factors: Yes Each Risk Factor Represents 3 Points: Age 75 years or older, Family history of DVT/PE Thrombosis Risk Factor Assessment Total Risk Factor Score: 7 Thrombosis Risk Factor Assessment Level: High Risk
[2024-12-10] MEDS: SYMBICORT 160-4.5 MCG INHALER INHALATION SCH (19:46)
[2024-12-10] MEDS: ALPRAZolam 0.25 MG TAB PO PRN (21:29)
[2024-12-11 08:46] LABS: HCT 33.3 % (37.2-46.3); HGB 10.1 g/dL (12.0-15.0); MCH 27.7 pg (27.0-32.0); MCHC 30.3 g/dL (32.0-37.0); MCV 91.5 FL (80.0-97.0); NRBC Per 100 WBC 0 X 10*3/uL (0.00-0.01); Platelet Count 199 X 10*3/uL (140-440); RBC 3.64 X 10*6/uL (4.10-5.20); RDW 12.7 % (11.5-14.5); WBC 6.01 X 10*3/uL (4.50-10.00)
[2024-12-11 08:47] LABS: Basophils # (A) 0 X 10*3/uL (0.00-0.10); Basophils % (A) 0 %; Eosinophils # (A) 0 X 10*3/uL (0.04-0.35); Eosinophils % (A) 0 %; Immature Grans, Automated 0.30 %; Lymphocytes # (A) 0.59 X 10*3/uL (0.90-5.00); Lymphocytes % (A) 9.8 %; Monocytes # (A) 0.27 X 10*3/uL (0.20-1.00); Monocytes % (A) 4.5 %; Neutrophils # (A) 5.13 X 10*3/uL (1.80-7.70); Neutrophils % (A) 85.4 %
[2024-12-11] MEDS: IPRATROPIUM-ALBUTEROL 3 ML NEB INHALATION SCH (08:57)
[2024-12-11] MEDS: predniSONE 20 MG TAB PO SCH (09:42)
--- NOTE | 2024-12-11 10:10 | P.PN ---
Subjective Progress Note Date: 12/11/24 This is a very pleasant 84-year-old female patient with a known history of severe, oxygen dependent chronic obstructive pulmonary disease with an FEV1 value of 21% and follows in our office with Dr. aHyes. She had been sick last week and was treated with Bactrim and prednisone without much improvement. She presented here to the emergency room yesterday with complaints of increasing shortness of breath, cough and congestion. Chest x-ray reveals bronchitis. No consolidation or pleural effusion. White count 8.1. Hemoglobin 11.9. Platelets 240. Sodium 132. Potassium 5.0. Bicarb 27. BUN 22. Creatinine 0.85. Glucose 127. Viral screen negative for influenza A/B, RSV, COVID. She is seen today in consultation in the emergency department. She is currently sitting up on a stretcher. Awake and alert in no acute distress. She is maintaining O2 saturations in the 90s on 4 L/min per nasal cannula. The patient is seen today December 11, 2024 in follow-up on the regular medical floor. She is currently sitting up in bed. Awake and alert in no acute distress. Maintaining O2 saturations in the 90s on 4 L/min per nasal cannula. She has been afebrile. Hemodynamically stable. Blood culture pending. White count 6.0. Hemoglobin 10.1. Platelets 199. Procalcitonin was negative at 0.06. She remains on DuoNeb inhalations, Symbicort, prednisone taper. Heparin for DVT prophylaxis. Objective - Vital Signs Vital signs: Vital Signs Temp 97.6 F 12/11/24 08:00 Pulse 84 12/11/24 09:12 Resp 18 12/11/24 08:00 BP 152/63 12/11/24 08:00 Pulse Ox 98 12/11/24 09:00 FiO2 Intake & Output 12/10/24 12/11/24 12/11/24 18:59 06:59 18:59 Intake Total 1979 Balance 1979 Intake: Oral 1979 Other: Voiding Method Bedside Commode Bedside Commode # Voids 5 2 # Bowel Movements 2 1 - Exam GENERAL EXAM: Alert, active, 84-year-old female, on 4 L nasal cannula, comfortable in no apparent distress. HEAD: Normocephalic. EYES: Normal reaction of pupils, equal size. NOSE: Clear with pink turbinates. THROAT: No erythema or exudates. NECK: No masses, no JVD. CHEST: No chest wall deformity. LUNGS: Equal air entry with no crackles, wheeze, rhonchi or dullness. Diminished CVS: S1 and S2 normal with no audible murmur, regular rhythm. ABDOMEN: No hepatosplenomegaly, normal bowel sounds, no guarding or rigidity. SPINE: No scoliosis or deformity SKIN: No rashes CENTRAL NERVOUS SYSTEM: No focal deficits, tone is normal in all 4 extremities. EXTREMITIES: There is no peripheral edema. No clubbing, no cyanosis. Peripheral pulses are intact. - Labs CBC & Chem 7: 12/11/24 05:24 12/09/24 22:16 Labs: Abnormal Lab Results - Last 24 Hours (Table) 12/11/24 Range/Units 05:24 RBC 3.64 L (4.10-5.20) X 10*6/uL Hgb 10.1 L (12.0-15.0) g/dL Hct 33.3 L (37.2-46.3) % MCHC 30.3 L (32.0-37.0) g/dL Lymphocytes # 0.59 L (0.90-5.00) X 10*3/uL Eosinophils # 0 L (0.04-0.35) X 10*3/uL Microbiology - Last 24 Hours (Table) 12/10/24 00:26 Blood Culture - Preliminary Blood Assessment and Plan Assessment: Acute on chronic hypoxic respiratory failure secondary to an acute exacerbation of chronic obstructive pulmonary disease. Failed outpatient treatment Severe oxygen dependent chronic obstructive pulmonary disease with an FEV1 value 21% of predicted. Normally on oxygen at 4 to 5 L at home Former smoker Plan: The patient was seen and evaluated Labs and medications reviewed Procalcitonin was negative Stable on 4 L nasal cannula Cleared for discharge Continue her home oxygen Continue her DuoNeb inhalations Continue her home Advair and Spiriva Follow-up in our office in 1 week This patient was seen independently by the pulmonary nurse practitioner addressing pulmonary issues I have personally seen and examined the patient, performed the documentation and the assessment and plan as written. Number of minutes spent on the visit: 24 Dictation was produced using [employer] dictation software. Please excuse any grammatical, word or spelling errors.
[2024-12-11 11:14] LABS: ALT 20 U/L (8-44); AST 26 U/L (13-35); Albumin 3.5 g/dL (3.8-4.9); Albumin/Globulin Ratio 2.50 Ratio (1.60-3.17); Alkaline Phosphatase 49 U/L (41-126); Anion Gap 10.80 mmol/L (4.00-12.00); BUN/Creat Ratio 30.00 Ratio (12.00-20.00); Blood Urea Nitrogen 18.0 mg/dL (9.0-27.0); Calcium 8.3 mg/dL (8.7-10.3); Carbon Dioxide 27.2 mmol/L (21.6-31.8); Chloride 101 mmol/L (96-109); Globulin 1.4 g/dL (1.6-3.3); Glucose 147 mg/dL (70-110); Potassium 4.4 mmol/L (3.5-5.5); Sodium 139 mmol/L (135-145); Total Protein 4.9 g/dL (6.2-8.2)
--- NOTE | 2024-12-11 16:17 | P.PN ---
Progress Note - Text Progress Note Date: 12/11/24 Chief Complaint: Short of breath Pleasant 84-year-old female who follows with Dr. Judy Tejada. Has known longstanding COPD. Follows with portable pinch riveter Dr. Hayes. On 5 L oxygen at home. Presents with 1 week of progressive increasing short of breath. Wheezing. No cough. No fever or chills. Decreased appetite. Tired. Admitted with COPD exacerbation. December 11: Breathing a bit better. Up in the bed. 4 L nasal cannula. DuoNeb. Symbicort. Switched over to oral prednisone. Per pulmonary watch for another 1 more day. Active Medications Acetaminophen (Acetaminophen Tab 325 Mg Tab) 650 mg PO Q6HR PRN PRN Reason: Mild Pain or Fever > 100.5 Albuterol/Ipratropium (Ipratropium-Albuterol 3 Ml Neb) 3 ml INHALATION RT-Q2H PRN PRN Reason: Shortness Of Breath Or Wheezing Last Admin: 12/10/24 00:54 Dose: 3 ml Albuterol/Ipratropium (Ipratropium-Albuterol 3 Ml Neb) 3 ml INHALATION RT-QID [facility] Last Admin: 12/11/24 12:18 Dose: 3 ml Alprazolam (Alprazolam 0.25 Mg Tab) 0.25 mg PO BID PRN PRN Reason: Anxiety Last Admin: 12/10/24 21:29 Dose: 0.25 mg Budesonide/Formoterol Fumarate (Symbicort 160-4.5 Mcg Inhaler) 2 puff INHALATION RT-BID [facility] Last Admin: 12/11/24 08:57 Dose: 2 puff Heparin Sodium (Porcine) (Heparin Sodium,Porcine 5,000 Unit/Ml 1 Ml Vial) 5,000 unit SQ Q12HR [facility] Last Admin: 12/11/24 09:43 Dose: 5,000 unit Naloxone HCl (Naloxone 0.4 Mg/Ml 1 Ml Vial) 0.2 mg IV Q2M PRN PRN Reason: Opioid Reversal Ondansetron HCl (Ondansetron 4 Mg/2 Ml Vial) 4 mg IVP Q8HR PRN PRN Reason: Nausea And Vomiting Prednisone (Prednisone 20 Mg Tab) 40 mg PO DAILY [facility] Last Admin: 12/11/24 09:42 Dose: 40 mg Social history: Lives alone. Smoked from ages 18 till 2016. Half to a pack a day. No alcohol. Physical examination: VITAL SIGNS: Nine 7.9, 93, 18, 130 x 73, 97% 4 L GENERAL: BMI 20.1, in bed, EYES: Pupils equal. Conjunctiva rio l. HEENT: External appearance of nose and ears normal, oral cavity grossly normal. NECK: JVD not raised; masses not palpable. HEART: First and second heart sounds are normal; no edema. LUNGS: Respiratory rate increased, diminished breath sound. ABDOMEN: Soft, nontender, liver spleen not palpable, no masses palpable. PSYCH: Alert and oriented x3; mood and affect rio l. MUSCULOSKELETAL:No Clubbing/cyanosis;muscles-grossly intact INVESTIGATIONS, reviewed in the clinical context: December 11: White count 6.0 hemoglobin 10.1 potassium 4.4 albumin 3.5 December 09, 2024: White count 8.1 hemoglobin 11.9 platelets 240 sodium 132 potassium 5 BUN 22 creatinine 0.85 Influenza type A, type B, RSV, SARS-CoV-2: Not detected EKG tracing personally reviewed by me-normal sinus rhythm. P pulmonale. Chest x-ray film personally reviewed by me-P pulmonale Assessment plan: - Acute severe COPD exacerbation in a prior smoker DuoNeb every 4. IV Solu-Medrol. Symbicort. - Hyponatremia Encourage oral intake - Mild protein calorie malnutrition Add Ensure - Normocytic anemia Check iron, B12 folate levels - Chronic hypoxic respiratory failure from underlying COPD Doing better. + Incentive spirometry. Switch to oral prednisone Past Medical History Past Medical History: COPD, GERD/Reflux Additional Past Medical History / Comment(s): O2 at 5L History of Any Multi-Drug Resistant Organisms: None Reported Past Surgical History: Appendectomy, Orthopedic Surgery, Tubal Ligation Additional Past Surgical History / Comment(s): arthroscopic knee, sheldon cataracts Past Anesthesia/Blood Transfusion Reactions: Previous Problems w/ Anesthesia Additional Past Anesthesia/Blood Transfusion Reaction / Comment(s): "hard time waking up" Past Psychological History: No Psychological Hx Reported Smoking Status: Former smoker Past Alcohol Use History: None Reported Additional Past Alcohol Use History / Comment(s): quit smoking 2015, smoked 1/2- 1ppd from age 20 (1960) Past Drug Use History: None Reported
--- NOTE | 2024-12-12 10:22 | P.PN ---
Subjective Progress Note Date: 12/12/24 This is a very pleasant 84-year-old female patient with a known history of severe, oxygen dependent chronic obstructive pulmonary disease with an FEV1 value of 21% and follows in our office with Dr. Hayes. She had been sick last week and was treated with Bactrim and prednisone without much improvement. She presented here to the emergency room yesterday with complaints of increasing shortness of breath, cough and congestion. Chest x-ray reveals bronchitis. No consolidation or pleural effusion. White count 8.1. Hemoglobin 11.9. Platelets 240. Sodium 132. Potassium 5.0. Bicarb 27. BUN 22. Creatinine 0.85. Glucose 127. Viral screen negative for influenza A/B, RSV, COVID. She is seen today in consultation in the emergency department. She is currently sitting up on a stretcher. Awake and alert in no acute distress. She is maintaining O2 saturations in the 90s on 4 L/min per nasal cannula. The patient is seen today December 11, 2024 in follow-up on the regular medical floor. She is currently sitting up in bed. Awake and alert in no acute distress. Maintaining O2 saturations in the 90s on 4 L/min per nasal cannula. She has been afebrile. Hemodynamically stable. Blood culture pending. White count 6.0. Hemoglobin 10.1. Platelets 199. Procalcitonin was negative at 0.06. She remains on DuoNeb inhalations, Symbicort, prednisone taper. Heparin for DVT prophylaxis. The patient is seen today December 12, 2024 in follow-up on the regular medical floor. She is up ambulating in her room. Awake and alert in no acute distress. Maintaining O2 saturations in the 90s on 4 L/min per nasal cannula. She is continued on DuoNeb inhalations, Symbicort, prednisone taper. Procalcitonin was negative at 0.06. Heparin for DVT prophylaxis. Blood culture revealed no growth. No new labs today. Objective - Vital Signs Vital signs: Vital Signs Temp 97.5 F L 12/12/24 08:00 Pulse 80 12/12/24 09:15 Resp 18 12/12/24 08:00 BP 116/70 12/12/24 08:00 Pulse Ox 99 12/12/24 09:00 FiO2 Intake & Output 12/11/24 12/12/24 12/12/24 18:59 06:59 18:59 Intake Total 1080 1080 Balance 1080 1080 Intake: Oral 1080 1080 Other: Voiding Method Toilet # Voids 3 # Bowel Movements 1 - Exam GENERAL EXAM: Alert, pleasant 84-year-old female, on 4 L nasal cannula, comfortable in no apparent distress. HEAD: Normocephalic. EYES: Normal reaction of pupils, equal size. NOSE: Clear with pink turbinates. THROAT: No erythema or exudates. NECK: No masses, no JVD. CHEST: No chest wall deformity. LUNGS: Equal air entry with no crackles, wheeze, rhonchi or dullness. Diminished CVS: S1 and S2 normal with no audible murmur, regular rhythm. ABDOMEN: No hepatosplenomegaly, normal bowel sounds, no guarding or rigidity. SPINE: No scoliosis or deformity SKIN: No rashes CENTRAL NERVOUS SYSTEM: No focal deficits, tone is normal in all 4 extremities. EXTREMITIES: There is no peripheral edema. No clubbing, no cyanosis. Peripheral pulses are intact. - Labs CBC & Chem 7: 12/11/24 05:24 12/11/24 05:24 Labs: Abnormal Lab Results - Last 24 Hours (Table) 12/11/24 Range/Units 05:24 BUN/Creatinine Ratio 30.00 H (12.00-20.00) Ratio Glucose 147 H (70-110) mg/dL Calcium 8.3 L (8.7-10.3) mg/dL Total Bilirubin <0.2 L (0.3-1.2) mg/dL Total Protein 4.9 L (6.2-8.2) g/dL Albumin 3.5 L (3.8-4.9) g/dL Globulin 1.4 L (1.6-3.3) g/dL Microbiology - Last 24 Hours (Table) 12/10/24 00:26 Blood Culture - Preliminary Blood Assessment and Plan Assessment: Acute on chronic hypoxic respiratory failure secondary to an acute exacerbation of chronic obstructive pulmonary disease. Failed outpatient treatment Severe oxygen dependent chronic obstructive pulmonary disease with an FEV1 value 21% of predicted. Normally on oxygen at 4 to 5 L at home Former smoker Plan: The patient was seen and evaluated Microbiology and medications reviewed Stable on 4 L nasal cannula No new pulmonary complaints Cleared for discharge Continue her home oxygen Continue her DuoNeb inhalations Continue her home Advair and Spiriva Follow-up in our office in 1 week This patient was seen independently by the pulmonary nurse practitioner addressing pulmonary issues I have personally seen and examined the patient, performed the documentation and the assessment and plan as written. Number of minutes spent on the visit: 23 Dictation was produced using [employer] dictation software. Please excuse any grammatical, word or spelling errors.
[2024-12-12 13:24] LABS: Ferritin 172.0 ng/mL (10.0-291.0); Iron 145.0 UG/DL (50-170); Total Iron Binding Capacity 220.0 UG/DL (228-460); Vitamin B12 717.0 pg/mL (200.0-944.0)
[2024-12-12 13:30] VITALS: BP 119/70; PULSE 72; RESP 21; TEMP 97.8
--- NOTE | 2024-12-12 16:18 | P.DS ---
Providers Date of admission: 12/10/24 00:19 Expected date of discharge: 12/12/24 Attending physician: Chandana Saunders Consults: 12/10/24 00:18 Consult Physician Routine Consulting Provider: Alonso Starkey Consult Reason/Comments: chronic hypoxic resp failure, copd exacerbation, tracheobronchitis Do you want consulting provider notified?: Yes Primary care physician: Judy Tejada [facility] Course: Chief Complaint: Short of breath Pleasant 84-year-old female who follows with Dr. Judy Tejada. Has known longstanding COPD. Follows with data control assistant Dr. Hayes. On 5 L oxygen at home. Presents with 1 week of progressive increasing short of breath. Wheezing. No cough. No fever or chills. Decreased appetite. Tired. Admitted with COPD exacerbation. December 11: Breathing a bit better. Up in the bed. 4 L nasal cannula. DuoNeb. Symbicort. Switched over to oral prednisone. Per pulmonary watch for another 1 more day. December 12: Doing better. Discussed with the patient. She is 99% on 4 L. Told to use 3 L at rest and 4 L with activity. Patient has prednisone at home. Finished a taper. Currently use DuoNeb 3 times a day. She will follow-up with the data control assistant Dr. Hayes. Discussion and discharge planning more than 35 minutes Social history: Lives alone. Smoked from ages 18 till 2016. Half to a pack a day. No alcohol. Physical examination: VITAL SIGNS: 97.8, 72, 21, 119 x 70, 97% 4 L GENERAL: BMI 20.1, comfortable EYES: Pupils equal. Conjunctiva rio l. HEENT: External appearance of nose and ears normal, oral cavity grossly normal. NECK: JVD not raised; masses not palpable. HEART: First and second heart sounds are normal; no edema. LUNGS: Respiratory rate increased, diminished breath sound. ABDOMEN: Soft, nontender, liver spleen not palpable, no masses palpable. PSYCH: Alert and oriented x3; mood and affect rio l. MUSCULOSKELETAL:No Clubbing/cyanosis;muscles-grossly intact INVESTIGATIONS, reviewed in the clinical context: TIBC 220% saturation 65.9 transferrin 157 ferritin 172 B12 717 folate 10.6 procalcitonin 0.06 December 11: White count 6.0 hemoglobin 10.1 potassium 4.4 albumin 3.5 December 09, 2024: White count 8.1 hemoglobin 11.9 platelets 240 sodium 132 potassium 5 BUN 22 creatinine 0.85 Influenza type A, type B, RSV, SARS-CoV-2: Not detected EKG tracing personally reviewed by me-normal sinus rhythm. P pulmonale. Chest x-ray film personally reviewed by me-P pulmonale Assessment plan: - Acute severe COPD exacerbation in a prior smoker: Better DuoNeb every 4. IV Solu-Medrol. Symbicort. Discharged on prednisone taper - Hyponatremia: Better Encourage oral intake - Mild protein calorie malnutrition Ensure - Normocytic anemia, chronic disease B12 folate normal. Iron relatively normal - Chronic hypoxic respiratory failure from underlying COPD Suggest 3 L at home at rest and 4 L with activity Disposition: Home Past Medical History Past Medical History: COPD, GERD/Reflux Additional Past Medical History / Comment(s): O2 at 5L History of Any Multi-Drug Resistant Organisms: None Reported Past Surgical History: Appendectomy, Orthopedic Surgery, Tubal Ligation Additional Past Surgical History / Comment(s): arthroscopic knee, sheldon cataracts Past Anesthesia/Blood Transfusion Reactions: Previous Problems w/ Anesthesia Additional Past Anesthesia/Blood Transfusion Reaction / Comment(s): "hard time waking up" Past Psychological History: No Psychological Hx Reported Smoking Status: Former smoker Past Alcohol Use History: None Reported Additional Past Alcohol Use History / Comment(s): quit smoking 2015, smoked 1/2- 1ppd from age 20 (1960) Past Drug Use History: None Reported Plan - Discharge Summary New Discharge Prescriptions: New Ipratropium-Albuterol Nebulize [Duoneb 0.5 mg-3 mg/3 ml Soln] 3 ml INHALATION TID #0 each Continue Albuterol Inhaler [Ventolin Hfa Inhaler] 2 puff INHALATION RT-Q4H PRN PRN Reason: Shortness Of Breath predniSONE See Taper PO DIRECTED Tiotropium [place] [Spiriva Handihaler] 2 puff INHALATION RT-DAILY Fluticasone Propion/Salmeterol [Advair 250-50 Diskus] 1 puff INHALATION RT- BID Ipratropium-Albuterol Nebulize [Duoneb 0.5 mg-3 mg/3 ml Soln] 3 ml INHALATION DIRECTED PRN PRN Reason: Wheezing Discontinued Sulfamethox-Tmp 800-160Mg [Bactrim DS 800-160 mg] 1 tab PO Q12HR Azithromycin [Zithromax] 250 mg PO Q48H Discharge Medication List Tiotropium [place] [Spiriva Handihaler] 2 puff INHALATION RT-DAILY 09/29/22 [History] Albuterol Inhaler [Ventolin Hfa Inhaler] 2 puff INHALATION RT-Q4H PRN 12/10/24 [History] Fluticasone Propion/Salmeterol [Advair 250-50 Diskus] 1 puff INHALATION RT-BID 12/10/24 [History] Ipratropium-Albuterol Nebulize [Duoneb 0.5 mg-3 mg/3 ml Soln] 3 ml INHALATION DIRECTED PRN 12/10/24 [History] predniSONE See Taper PO DIRECTED 12/10/24 [History] Ipratropium-Albuterol Nebulize [Duoneb 0.5 mg-3 mg/3 ml Soln] 3 ml INHALATION TID #0 each 12/12/24 [Rx] Follow up Appointment(s)/Referral(s): Mara Hayes MD [STAFF PHYSICIAN] - 1 Week (Please call office and make appo intment ) Judy Tejada MD [Primary Care Provider] - 1-2 days (Please call office and make appointment) Activity/Diet/Wound Care/Special Instructions: no new Rx Discharge Disposition: HOME SELF-CARE
== END 2024-12-12 14:02 | disposition home or self-care (01) ==
LOC: EC 21:17 → 5NMEDONC 12-10 00:19
PROVIDERS: ADMIT Hospitalist; ATTEND Hospitalist
DX: J44.1 Chronic obstructive pulmonary disease with (acute) exacerbation (principal); J96.21 Acute and chronic respiratory failure with hypoxia; E87.1 Hypo-osmolality and hyponatremia; E44.1 Mild protein-calorie malnutrition; Z68.20 Body mass index [BMI] 20.0-20.9, adult; D64.9 Anemia, unspecified; Z99.81 Dependence on supplemental oxygen; Z79.51 Long term (current) use of inhaled steroids; Z79.899 Other long term (current) drug therapy; Z88.8 Allergy status to other drugs, medicaments and biological substances; Z11.52 Encounter for screening for COVID-19; Z11.59 Encounter for screening for other viral diseases; Z87.891 Personal history of nicotine dependence
CPT/HCPCS: 96376 ×2; 96366 ×2; 96372 ×3; 96365; 96367; 96375; 99285; 36415; 94640 ×7; 94760 ×3; 93005; 80053 ×2; 82607; 82728; 82746; 83540; 83550; 83735; 85025 ×2; 87040; 84145; 87636; 71046; G0378 ×3; J1644 ×3; J0696; J3475; J7512 ×2; J2919 ×4